=== PATIENT | female | born 2000 ===

== ENCOUNTER 2022-03-06 11:35 | Observation (INO) | payer SELFPAY ==
[2022-03-06 12:20] VITALS: BP 116/71
[2022-03-06 13:00] VITALS: BP 116/71
[2022-03-06 13:18] LABS: BASOPHILS % (AUTO) 0 % (0-10); EOSINOPHILS # (AUTO) 0.1 10^3/uL (0.0-0.3); EOSINOPHILS % (AUTO) 1 % (0-10); HEMATOCRIT 38 % (35-52); HEMOGLOBIN 13.3 g/dL (11.5-16.0); LYMPHOCYTES # (AUTO) 2.4 10^3/uL (1.0-4.0); LYMPHOCYTES % (AUTO) 21 % (12-44); MEAN CORPUSCULAR HEMOGLOBIN 31 pg (25-34); MEAN CORPUSCULAR HGB CONC 35 g/dL (32-36); MEAN CORPUSCULAR VOLUME 88 fL (80-99); MEAN PLATELET VOLUME 9.4 fL (9.0-12.2); MONOCYTES # (AUTO) 0.5 10^3/uL (0.0-1.0); MONOCYTES % (AUTO) 4 % (0-12); NEUTROPHILS # (AUTO) 8.3 10^3/uL (1.8-7.8); NEUTROPHILS % (AUTO) 74 % (42-75); PLATELET COUNT 452 10^3/uL (130-400); WHITE BLOOD COUNT 11.3 10^3/uL (4.3-11.0)
[2022-03-06 13:39] LABS: ALBUMIN 4.1 GM/DL (3.2-4.5); BILIRUBIN,TOTAL 0.4 MG/DL (0.1-1.0); CALCIUM 9.5 MG/DL (8.5-10.1); CREATININE SERUM 0.68 MG/DL (0.60-1.30); POTASSIUM 3.8 MMOL/L (3.6-5.0); TOTAL PROTEIN 7.4 GM/DL (6.4-8.2)
[2022-03-06] MEDS: D5 LR IV SOLUTION 1,000 ML IV SCH ×2 (13:55→19:34)
[2022-03-06 14:00] VITALS: BP 116/71
--- NOTE | 2022-03-06 14:11 | Diagnostic Imaging Report ---
PROCEDURE: US Gallbladder. TECHNIQUE: Multiple real-time grayscale images were obtained over the right upper quadrant in various projections. INDICATION: Right upper quadrant pain. FINDINGS: Liver is normal in size without focal lesions. There is hepatopedal flow in the main portal vein. Common bile duct is obscured. There is some gallbladder sludge. There is no gallbladder wall thickening or pericholecystic fluid. The pancreas is not well seen due to bowel gas. The aorta is nonaneurysmal. The IVC is normal in caliber and patent. Right kidney is normal. There is no ascites. There is a sonographically positive Phelps's sign. IMPRESSION: Sonographically positive Phelps's sign with questionable gallbladder sludge. Dictated by: Dictated on workstation # [id number]
[2022-03-06] MEDS: PROMETHAZINE INJ 25 MG/ML (PHENERGAN) AMP IVP PRN ×2 (14:15→18:05)
[2022-03-06 14:36] LABS: BILIRUBIN,URINE 1+ (NEGATIVE); CLARITY,URINE CLEAR; COLOR,URINE YELLOW; GLUCOSE, URINE (UA) NEGATIVE (NEGATIVE); KETONES,URINE TRACE (NEGATIVE); LEUKOCYTE ESTERASE ,URINE 3+ (NEGATIVE); NITRITE,URINE NEGATIVE (NEGATIVE); PH,URINE 6.5 (5-9); PROTEIN,URINE 1+ (NEGATIVE)
[2022-03-06 15:15] LABS: BACTERIA,URINE FEW /HPF; HYALINE CASTS, URINE 0-2 /LPF
[2022-03-06] MEDS: fentaNYL INJ 100 MCG/2 ML AMP IVP PRN ×3 (15:28→19:41)
[2022-03-06 15:30] VITALS: BP 109/56
--- NOTE | 2022-03-06 16:31 | Diagnostic Imaging Report ---
PROCEDURE: US OB SINGLE FETUS <14 WKS. TECHNIQUE: Multiple real-time grayscale images were obtained over the gravid uterus in various projections. INDICATION: Early . There are no prior studies available for comparison. FINDINGS: There is a gestational sac within the uterus containing a single live fetus. heart motion was noted, and a rate of 176 BPM was recorded. The crown-rump length suggests the estimated gestational age is 10 weeks 4 days, +/- 1 week. There were no obvious abnormalities identified. The amniotic fluid volume is within normal limits. At this time, it is not certain where the placenta will develop. Both ovaries were identified and were unremarkable. There is no pelvic mass or free fluid collection noted. IMPRESSION: 1. There is a single live intrauterine of approximately 10 weeks 4 days gestation, +/- 1 week. The EDC is 09/28/2022. 2. There were no obvious abnormality identified. If a more sensitive evaluation of the anatomy is desired, however, then a short-term (8-10 week) follow-up ultrasound exam would be recommended. 3. There is no pelvic mass or free fluid collection to suggest an acute abnormality. Dictated by: Dictated on workstation # [id number]
[2022-03-06] MEDS ORDERED: HYDROcodone/APAP 5 MG/325 MG (LORTAB) TAB PO PRN (18:45)
[2022-03-06] MEDS: ONDANSETRON 4 MG/2 ML (SDV) Z0FRAN IVP PRN (19:41)
[2022-03-06 20:00] VITALS: BP 99/55
[2022-03-06] MEDS ORDERED: PANTOPRAZOLE 40 MG (PROTONIX) VIAL IV ONE (20:00)
[2022-03-06] MEDS ORDERED: diphenhydrAMINE 50 MG/ML INJ (BENADRYL) IVP PRN (20:15)
[2022-03-06 21:21] LABS: HEPATITIS C ANTIBODY C Non-Reactive (Non-Reactive)
[2022-03-06] MEDS: PYRIDOXINE (VITAMIN B-6) 50 MG TABLET PO SCH (22:19)
[2022-03-06] MEDS ORDERED: PANTOPRAZOLE 40 MG (PROTONIX) VIAL ONE (22:33)
[2022-03-06 23:22] VITALS: BP 104/65
[2022-03-07 03:48] VITALS: BP 108/54
[2022-03-07] MEDS: D5 LR IV SOLUTION 1,000 ML IV SCH ×2 (03:50→13:48)
[2022-03-07] MEDS: fentaNYL INJ 100 MCG/2 ML AMP IVP PRN (03:51)
[2022-03-07 06:03] LABS: HEMATOCRIT 33 % (35-52); HEMOGLOBIN 11.3 g/dL (11.5-16.0); MEAN CORPUSCULAR HEMOGLOBIN 31 pg (25-34); MEAN CORPUSCULAR HGB CONC 35 g/dL (32-36); MEAN CORPUSCULAR VOLUME 88 fL (80-99); MEAN PLATELET VOLUME 9.7 fL (9.0-12.2); PLATELET COUNT 343 10^3/uL (130-400); WHITE BLOOD COUNT 8.4 10^3/uL (4.3-11.0)
[2022-03-07] MEDS ORDERED: LACTATED RINGERS 1,000 ML IV SCH (08:15)
[2022-03-07] MEDS ORDERED: PREN1TAB79 PO ×2 (08:15)
[2022-03-07 09:00] VITALS: BP 101/59
[2022-03-07] MEDS ORDERED: PANTOPRAZOLE 40 MG (PROTONIX) VIAL IV SCH (09:00)
[2022-03-07] MEDS: PYRIDOXINE (VITAMIN B-6) 50 MG TABLET PO SCH (09:48)
[2022-03-07] MEDS: ONDANSETRON 4 MG/2 ML (SDV) Z0FRAN IVP PRN (09:49)
[2022-03-07] MEDS ORDERED: PROMETHAZINE 25 MG (PHENERGAN) TAB PO PRN (10:45)
[2022-03-07] MEDS ORDERED: ONDANSETRON 4 MG (ZOFRAN) ORAL DISSOLVE TAB PO PRN (10:45)
[2022-03-07 12:30] VITALS: BP 107/56
[2022-03-07] MEDS: diphenhydrAMINE 25 MG TAB (BENADRYL) PO PRN ×2 (13:48→13:52)
[2022-03-07] MEDS ORDERED: PYRI25TA3 PO ×2 (14:45)
[2022-03-07] MEDS ORDERED: PROM25TA14 PO ×2 (14:45)
[2022-03-07] MEDS ORDERED: FAMO20TA3 PO ×2 (14:45)
[2022-03-07] MEDS ORDERED: ONDA4TAB11 PO ×2 (14:45)
[2022-03-07] MEDS ORDERED: DOXY25TA56 PO ×2 (14:45)
[2022-03-07] MEDS ORDERED: ACHD5005 PO ×2 (14:45)
--- NOTE | 2022-03-07 15:37 | Short Stay Summary ---
History of Present Illness History of Present Illness Reason for visit/HPI 21 yo at 10 weeks gestation presented to clinic on 03/06/22 for initial Ob visit and noted she had 3 days of severe RUQ pain, intractable vomiting that ranged from green to bloody, severe reflux and some cough. She reported history of gall bladder disease diagnosed in her second and as yet untreated and she had a lot of trouble with her GB in that . She denied fever, c ongestion, diarrhea. Date of Admission Mar 06, 2022 at 12:01 Date of Discharge Mar 07, 2022 Time Seen by Provider: 08:30 Attending Physician Admitting Physician Admitting Physician: Arslan Rios MD Attending Physician: Arslan Rios MD Consult Allergies and Home Medications Allergies Coded Allergies: No Known Drug Allergies (Unverified , 03/06/22) Patient Home Medication List Home Medication List Reviewed: Yes (note that the med list here is her d/c list, not her admit list) Doxylamine Succinate (Unisom) 25 Mg Tablet, 12.5 MG PO HS Prescribed by: ARSLAN RIOS on 03/07/22 1445 Famotidine (Acid Talent Advisor (FAMOTIDINE)) 20 Mg Tablet, 20 MG PO BID Prescribed by: ARSLAN RIOS on 03/07/22 1445 Hydrocodone Bit/Acetaminophen (HYDROcodone/APAP 5 MG/325 MG TAB) 1 Tab Tab, 1 EA PO Q6HR PRN for PAIN-MODERATE (5-7) Prescribed by: ARSLAN RIOS on 03/07/22 1446 Ondansetron (Ondansetron Odt) 4 Mg Tab.rapdis, 4 MG PO Q6H PRN for NAUS EA/VOMITING-3RD LINE Prescribed by: ARSLAN RIOS on 03/07/22 1445 Vit W-Ca,Fe,FA(<1 mg) ( Vitamins) 27 Mg Iron-800 Mcg Tablet, 1 EACH PO DAILY, (Reported) Entered as Reported by: RAJWINDER RAYA on 03/07/22 0815 Last Action: New Order Promethazine HCl (Promethazine Tablet) 25 Mg Tablet, 25 MG PO Q4H PRN for NAUSEA/VOMITING-2ND LINE Prescribed by: ARSLAN RIOS on 03/07/22 1445 Pyridoxine HCl (Vitamin B-6) 25 Mg Tablet, 25 MG PO TID Prescribed by: ARSLAN RIOS on 03/07/22 1445 Past Jwchgsd-Wjdbrc-Bvzutq Hx Patient Social History Number of Children: 2 Number of living children: 2 Smoking Status: Unknown if Ever Smoked Reproductive System : Yes Expected Date of Delivery: Sep 29, 2022 Last Menstrual Period: Dec 21, 2021 Hx : 3 Hx Para: 2 Hx Total # of Abortions (Spona: 0 Family Medical History Significant Family History: No Pertinent Family Hx Review of Systems Constitutional: No fever EENTM: throat pain; No nose congestion Respiratory: short of breath Gastrointestinal: abdominal pain; No constipation, No diarrhea; hematemesis, heartburn, nausea, vomiting Genitourinary: No dysuria Musculoskeletal: back pain Skin: No rash Physical Exam Vital Signs Vital Signs - First Documented 03/06/22 12:20 Temp 36.9 Pulse 88 Resp 18 B/P (MAP) 116/71 (86) Pulse Ox 98 O2 Delivery Room Air Capillary Refill : Less Than 3 Seconds Height, Weight, BMI Height: '" Weight: lbs. oz. kg; BMI Method: General Appearance: No Apparent Distress, WD/WN Respiratory: Lungs Clear, Normal Breath Sounds Cardiovascular: Regular Rate, Rhythm, No Murmur Gastrointestinal: Soft, Tenderness (marked RUQ tenderness, positive Phelps's) Extremity: No Pedal Edema Neurologic/Psychiatric: Alert, Normal Mood/Affect Skin: Normal Color, Warm/Dry Short Stay Diagnosis Discharge Diagnosis-Short Stay Admission Diagnosis: RUQ pain Hyperemesis gravidarum First trimester Cough Final Discharge Diagnosis: Gall bladder sludge without cholecystitis Hyperemesis gravidarum First trimester COVID19 infection Conclusion Labs Laboratory Tests 03/06/22 21:20: SARS-CoV-2 RNA (RT-PCR) DetectedH 03/07/22 05:11: White Blood Count 8.4, Red Blood Count 3.70L, Hemoglobin 11.3L, Hematocrit 33L, Mean Corpuscular Volume 88, Mean Corpuscular Hemoglobin 31, Mean Corpuscular Hemoglobin Concent 35, Red Cell Distribution Width 12.3, Platelet Count 343, Mean Platelet Volume 9.7 Microbiology 03/06/22 Urine Culture - Final, Complete 3 or more isolates Strep, Beta Hemolytic Group B No Susceptibility Performed Conclusion/Plan Gall bladder sludge without cholecystitis- labs showed minimal elevation in WBC and US showed sludge but no wall thickening or pericholecystic fluid, pain treated with hydrocodone, discussed importance of minimizing use. Will refer to Surgery to discuss possible second trimester cholecystectomy Hyperemesis gravidarum- labs without significant electrolyte abnormalities, received IVF throughout stay, able to tolerate liquid and some solid food at d/c, discharged with B6, doxylamine scheduled and promethazine as needed with ondansetron third option as needed First trimester - US confirmed live IUP, initial labs obt ained with labwork COVID19 infection- unvaccinated, discussed possibility of Paxlovid and risk and benefits in and she declined. No hypoxia throughout stay. ARSLAN RIOS MD Mar 07, 2022 15:37
[2022-03-07 17:00] VITALS: BP 96/54
[2022-03-07 18:20] VITALS: BP 96/54
== END 2022-03-07 14:38 | disposition home or self-care (01) ==
LOC: LDRP 12:01 → UNDOADMOB 12:01 → LDRP 12:10 → UNDODISOB 03-07 14:38
PROVIDERS: ADMIT Family Medicine; ATTEND Family Medicine
DX: O21.0 Mild hyperemesis gravidarum (principal); Z3A.10 10 weeks gestation of pregnancy; O26.891 Other specified pregnancy related conditions, first trimester; R10.11 Right upper quadrant pain; O98.511 Other viral diseases complicating pregnancy, first trimester; U07.1 COVID-19; O26.619 Liver and biliary tract disorders in pregnancy, unspecified trimester
CPT/HCPCS: 76705; 76801; 80053; 81000; 84443; 85025; 85027; 86762; 86780; 86803; 86850; 86900; 86901; 87077; 87088; 87340; 87389; 87636; 96361 ×2; 96374; 96375; 96376 ×2; G0378; G0379; 36415

== ENCOUNTER 2022-03-26 10:28 | Emergency (ER) | payer SELFPAY ==
[~2022-03-26] VITALS: Ht 165 cm; Wt 64.8 kg
[~2022-03-26 10:28] MED LIST: ACHD5005 PO; DOXY25TA56 PO; FAMO20TA3 PO; ONDA4TAB11 PO; PREN1TAB79 PO; PROM25TA14 PO; PYRI25TA3 PO
[2022-03-26 10:57] LABS: BASOPHILS % (AUTO) 0 % (0-10); EOSINOPHILS # (AUTO) 0.1 10^3/uL (0.0-0.3); EOSINOPHILS % (AUTO) 1 % (0-10); HEMATOCRIT 38 % (35-52); HEMOGLOBIN 12.8 g/dL (11.5-16.0); LYMPHOCYTES # (AUTO) 2.2 10^3/uL (1.0-4.0); LYMPHOCYTES % (AUTO) 21 % (12-44); MEAN CORPUSCULAR HEMOGLOBIN 31 pg (25-34); MEAN CORPUSCULAR HGB CONC 34 g/dL (32-36); MEAN CORPUSCULAR VOLUME 90 fL (80-99); MEAN PLATELET VOLUME 9.2 fL (9.0-12.2); MONOCYTES # (AUTO) 0.4 10^3/uL (0.0-1.0); MONOCYTES % (AUTO) 4 % (0-12); NEUTROPHILS # (AUTO) 7.7 10^3/uL (1.8-7.8); NEUTROPHILS % (AUTO) 74 % (42-75); PLATELET COUNT 381 10^3/uL (130-400); WHITE BLOOD COUNT 10.4 10^3/uL (4.3-11.0)
[2022-03-26 11:10] LABS: POTASSIUM 3.5 MMOL/L (3.6-5.0)
[2022-03-26 11:11] LABS: CALCIUM 9.2 MG/DL (8.5-10.1)
[2022-03-26 11:12] LABS: TOTAL PROTEIN 6.9 GM/DL (6.4-8.2)
[2022-03-26 11:13] LABS: BILIRUBIN,URINE NEGATIVE (NEGATIVE); CLARITY,URINE CLEAR; COLOR,URINE YELLOW; GLUCOSE, URINE (UA) NEGATIVE (NEGATIVE); KETONES,URINE NEGATIVE (NEGATIVE); LEUKOCYTE ESTERASE ,URINE 2+ (NEGATIVE); NITRITE,URINE NEGATIVE (NEGATIVE); PROTEIN,URINE NEGATIVE (NEGATIVE)
[2022-03-26 11:14] LABS: BILIRUBIN,TOTAL 0.4 MG/DL (0.1-1.0)
[2022-03-26 11:16] LABS: CREATININE SERUM 0.6 MG/DL (0.60-1.30)
[2022-03-26 11:25] LABS: CREATINE KINASE MB 0.4 NG/ML (<6.6)
[2022-03-26] MEDS ORDERED: ONDANSETRON 4 MG/2 ML (SDV) Z0FRAN IVP ONE (11:30)
[2022-03-26] MEDS ORDERED: DICYCLOMINE 10 MG/ML (BENTYL) 2 ML AMP IM ONE (11:30)
--- NOTE | 2022-03-26 11:30 | ED GI ---
General Chief Complaint: OB > 20 WEEKS Stated Complaint: RIGHT SIDE ABD PAIN Nursing Triage Note: PT PRESENTS TO ED WITH COMPLAINTS OF R UPPER ABDOMINAL PAIN X 4 DAYS. PT REPORTS N/V. PT STATES SHE HAS GALLSTONES AND HER OB TOLD HER SHE NEEDED SURGERY. PT REPORTS HER DUE DATE IS September. SHE IS APROX 22 WEEKS PREG. Source of Information: Patient Exam Limitations: No Limitations History of Present Illness Date Seen by Provider: Mar 26, 2022 Time Seen by Provider: 11:12 Initial Comments This is a 21-year-old female who is G-3, P- 2 with last menstrual period of December 20, 2021 who presented to the ER from [facility] for c/o right upper quadrant pain x4 days. Pain is aching, constant, and rates 10/10. Has associated nausea/vomiting with last episode last night. Took Zofran 4mg ODT with some relief. She has been unable to eat or drink due to pain and nausea. Has had no PO intake today. Allergies and Home Medications Allergies Coded Allergies: No Known Drug Allergies (Unverified , 03/06/22) Patient Home Medication List Doxylamine Succinate (Unisom) 25 Mg Tablet, 12.5 MG PO HS Prescribed by: ARSLAN ESPINOZA on 03/07/22 1445 Famotidine (Acid Floor Waxer (FAMOTIDINE)) 20 Mg Tablet, 20 MG PO BID Prescribed by: ARSLAN ESPINOZA on 03/07/22 1445 Hydrocodone Bit/Acetaminophen (HYDROcodone/APAP 5 MG/325 MG TAB) 1 Tab Tab, 1 EA PO Q6HR PRN for PAIN-MODERATE (5-7) Prescribed by: ARSLAN ESPINOZA on 03/07/22 1446 Ondansetron (Ondansetron Odt) 4 Mg Tab.rapdis, 4 MG PO Q6H PRN for NAUSEA/VOMITING-3RD LINE Prescribed by: ARSLAN ESPINOZA on 03/07/22 1445 Vit W-Ca,Fe,FA(<1 mg) ( Vitamins) 27 Mg Iron-800 Mcg Tablet, 1 EACH PO DAILY, (Reported) Entered as Reported by: RAJWINDER RAYA on 03/07/22 0815 Promethazine HCl (Promethazine Tablet) 25 Mg Tablet, 25 MG PO Q4H PRN for NAUSEA/VOMITING-2ND LINE Prescribed by: ARSLAN ESPINOZA on 03/07/22 1445 Pyridoxine HCl (Vitamin B-6) 25 Mg Tablet, 25 MG PO TID Prescribed by: ARSLAN ESPINOZA on 03/07/22 1445 Past Zobpdqi-Imyruo-Ijjzdp Hx Patient Social History Tobacco Use?: No Smoking Status: Former Smoker Substance use?: No Alcohol Use?: No Pt feels they are or have been: Yes Immunizations Up To Date First/Initial COVID19 Vaccinat: none Second COVID19 Vaccination Ramesh: none Past Medical History Surgery/Hospitalization HX: gallstones Family Medical History No Pertinent Family Hx Physical Exam Vital Signs Vital Signs - First Documented 03/26/22 10:53 Temp 37.1 Pulse 81 Resp 16 B/P (MAP) 112/67 (82) Pulse Ox 100 Capillary Refill : Less Than 3 Seconds Height/Weight/BMI Height: '" Weight: lbs. oz. kg; 23.00 BMI Method: Progress/Results/Core Measures Results/Orders Lab Results Laboratory Tests Test 03/26/22 10:50 03/26/22 11:08 Range/Units White Blood Count 10.4 4.3-11.0 10^3/uL Red Blood Count 4.17 3.80-5.11 10^6/uL Hemoglobin 12.8 11.5-16.0 g/dL Hematocrit 38 35-52 % Mean Corpuscular Volume 90 80-99 fL Mean Corpuscular Hemoglobin 31 25-34 pg Mean Corpuscular Hemoglobin Concent 34 32-36 g/dL Red Cell Distribution Width 12.8 10.0-14.5 % Platelet Count 381 130-400 10^3/uL Mean Platelet Volume 9.2 9.0-12.2 fL Immature Granulocyte % (Auto) 0 % Neutrophils (%) (Auto) 74 42-75 % Lymphocytes (%) (Auto) 21 12-44 % Monocytes (%) (Auto) 4 0-12 % Eosinophils (%) (Auto) 1 0-10 % Basophils (%) (Auto) 0 0-10 % Neutrophils # (Auto) 7.7 1.8-7.8 10^3/uL Lymphocytes # (Auto) 2.2 1.0-4.0 10^3/uL Monocytes # (Auto) 0.4 0.0-1.0 10^3/uL Eosinophils # (Auto) 0.1 0.0-0.3 10^3/uL Basophils # (Auto) 0.0 0.0-0.1 10^3/uL Immature Granulocyte # (Auto) 0.0 0.0-0.1 10^3/uL Sodium Level 137 135-145 MMOL/L Potassium Level 3.5 L 3.6-5.0 MMOL/L Chloride Level 103 98-107 MMOL/L Carbon Dioxide Level 23 21-32 MMOL/L Anion Gap 11 5-14 MMOL/L Blood Urea Nitrogen 4 L 7-18 MG/DL Creatinine 0.60 0.60-1.30 MG/DL Estimat Glomerular Filtration Rate 130 BUN/Creatinine Ratio 7 Glucose Level 88 70-105 MG/DL Calcium Level 9.2 8.5-10.1 MG/DL Corrected Calcium 9.2 8.5-10.1 MG/DL Total Bilirubin 0.4 0.1-1.0 MG/DL Aspartate Amino Transf (AST/SGOT) 15 5-34 U/L Alanine Aminotransferase (ALT/SGPT) 13 0-55 U/L Alkaline Phosphatase 65 40-136 U/L Creatine Kinase MB 0.4 <6.6 NG/ML Total Protein 6.9 6.4-8.2 GM/DL Albumin 4.0 3.2-4.5 GM/DL Lipase 14 8-78 U/L Urine Color YELLOW Urine Clarity CLEAR Urine pH 6.0 5-9 Urine Specific [place] 1.025 H 1.016-1.022 Urine Protein NEGATIVE NEGATIVE Urine Glucose (UA) NEGATIVE NEGATIVE Urine Ketones NEGATIVE NEGATIVE Urine Nitrite NEGATIVE NEGATIVE Urine Bilirubin NEGATIVE NEGATIVE Urine Urobilinogen 1.0 < = 1.0 MG/DL Urine Leukocyte Esterase 2+ H NEGATIVE Urine RBC (Auto) NEGATIVE NEGATIVE Urine RBC NONE /HPF Urine WBC 5-10 H /HPF Urine Squamous Epithelial Cells >50 H /HPF Urine Crystals NONE /LPF Urine Bacteria FEW H /HPF Urine Casts NONE /LPF Urine Mucus LARGE H /LPF Urine Culture Indicated YES My Orders Orders - MARTA VAN APRN Dicyclomine Injection (Bentyl Injection) (03/26/22 11:30) Ondansetron Injection (Zofran Injectio (03/26/22 11:30) Medications Given in ED Current Medications Medications Dose Ordered Sig/Susanna Route Start Time Stop Time Status Last Admin Dose Admin Dicyclomine HCl 10 mg ONCE ONCE IM 03/26/22 11:30 03/26/22 11:31 DC 03/26/22 11:33 10 MG Ondansetron HCl 4 mg ONCE ONCE IVP 03/26/22 11:30 03/26/22 11:31 DC 03/26/22 11:33 4 MG Vital Signs/I&O 03/26/22 10:53 Temp 37.1 Pulse 81 Resp 16 B/P (MAP) 112/67 (82) Pulse Ox 100 Blood Pressure Mean: 82 Departure Impression Primary Impression: Gallbladder colic Additional Impressions: Nausea and vomiting during UTI (urinary tract infection) Disposition: HOME, SELF-CARE Condition: Improved Departure-Patient Inst. Decision time for Depature: 12:24 Referrals: [facility] (PCP/Family) Primary Care Physician Patient Instructions: Gallbladder Diet Add. Discharge Instructions: Plan: 1. May take Dicyclomine 1 capsule by mouth every 6 hours as needed for pain. 2. Take Zofran 4mg by mouth every 6 hours as needed for nausea/vomiting. 3. Make sure you are drinking plenty of fluids to stay hydrated. 4. Fill out financial examiner through the hospital so we can schedule you follow up with general surgery to further evaluate your pain. 5. Return to ER for any new, concerning, or worsening symptoms. All discharge instructions reviewed with patient and/or family. Voiced unde rstanding. Scripts Cephalexin (Cephalexin) 500 Mg Tablet 500 MG PO QID for 7 Days, #28 TAB 0 Refills Prov: MARTA VAN EDGE GRINDER MACHINE 03/26/22 Dicyclomine HCl (Dicyclomine HCl) 10 Mg Capsule 10 MG PO Q6H PRN for PAIN-MILD (1-4), #30 CAP 0 Refills Prov: MARTA VAN EDGE GRINDER MACHINE 03/26/22 MARTA VAN EDGE GRINDER MACHINE Mar 26, 2022 11:30
[2022-03-26 12:01] LABS: BACTERIA,URINE FEW /HPF; SQUAMOUS EPITHELIAL CELL,UR >50 /HPF
--- NOTE | 2022-03-26 12:14 | Diagnostic Imaging Report ---
PROCEDURE: US Gallbladder. TECHNIQUE: Multiple real-time grayscale images were obtained over the right upper quadrant in various projections. INDICATION: Right upper quadrant pain, . FINDINGS: The liver parenchyma unremarkable. There is no abnormal distention of intramural or extrahepatic bile ducts. No echogenic or shadowing gallstone. The gallbladder wall non-thickened. Histotechnologist Supervisor did report tenderness to the gallbladder with transducer pressure. Pancreas was largely obscured. The right kidney unobstructed and normal. There was no ascites. Portal vein patent and showed normal hepatopetal directional flow. No right-sided hydronephrosis. IMPRESSION: No biliary dilatation or visualized stone. Non-thickened gallbladder was tender to transducer pressure. Right upper quadrant ultrasound otherwise normal. Normal nondilated right kidney. Dictated by: Dictated on workstation # [id number]
[2022-03-26] MEDS ORDERED: NS IV 1000 ML 1,000 ML IV ONE (12:30)
[2022-03-26] MEDS ORDERED: CEPH500T PO (12:30)
[2022-03-26] MEDS ORDERED: DICY10CA12 PO (12:30)
[2022-03-26] MEDS ORDERED: fentaNYL INJ 100 MCG/2 ML AMP IVP ONE (13:30)
[2022-03-26] MEDS ORDERED: DICYCLOMINE 10 MG (BENTYL) CAP PO ONE (13:30)
[2022-03-26 13:50] VITALS: BP 100/38
== END 2022-03-26 13:52 | disposition home or self-care (01) ==
LOC: EDUNIT# 10:28 → ER 10:31
DX: O23.42 Unspecified infection of urinary tract in pregnancy, second trimester (principal); N39.0 Urinary tract infection, site not specified; O99.612 Diseases of the digestive system complicating pregnancy, second trimester; K80.20 Calculus of gallbladder without cholecystitis without obstruction; Z87.891 Personal history of nicotine dependence; Z3A.22 22 weeks gestation of pregnancy; Z28.310 Unvaccinated for COVID-19
CPT/HCPCS: 36415; 76705; 80053; 81000; 82553; 83690; 85025; 87088

== ENCOUNTER 2022-04-07 12:22 | Emergency (ER) | payer SELFPAY ==
[~2022-04-07] VITALS: Ht 165.2 cm; Wt 65.9 kg
[~2022-04-07 12:22] MED LIST changes: +CEPH500T PO; +DICY10CA12 PO
--- NOTE | 2022-04-07 13:10 | ED Abdominal Pain ---
General Stated Complaint: 15 WK PREG - ABD PAIN/VOMITING/HEADACHE Source of Information: Patient Exam Limitations: Language Barrier History of Present Illness Date Seen by Provider: Apr 07, 2022 Time Seen by Provider: 12:57 Initial Comments Patient is a 21-year-old female who presents to the emergency department chief complaint of right upper quadrant abdominal pain, nausea and vomiting. Patient is approximately 3 and half months , last menstrual cycle was in November 2021. She is getting care through [facility], Dr. Espinoza. She is a G3, P2. She has had prior symptoms similar to this in her second . No fevers or chills. No diarrhea. She states eating makes her pain worse. She has not taken anything for it. The last time she had anything to eat or drink was yesterday. She denies abnormal vaginal bleeding. No dysuria, urgency or frequency. No black or bloody stools. She has had no prior abdominal surgeries. Use of video new account interviewer to facilitate communication All other review of systems reviewed and negative except as stated Timing/Duration: 2-3 Days Severity/Quality: Moderate, Aching Location: RUQ Radiation: No Radiation Modifying Factors: Worsens With Eating Associated Symptoms: Nausea/Vomiting Allergies and Home Medications Allergies Coded Allergies: No Known Drug Allergies (Unverified , 03/06/22) Patient Home Medication List Home Medication List Reviewed: Yes Cephalexin (Cephalexin) 500 Mg Tablet, 500 MG PO QID Prescribed by: MARTA VAN on 03/26/22 1230 Dicyclomine HCl (Dicyclomine HCl) 10 Mg Capsule, 10 MG PO Q6H PRN for PAIN-MILD (1-4) Prescribed by: MARTA VAN on 03/26/22 1230 Doxylamine Succinate (Unisom) 25 Mg Tablet, 12.5 MG PO HS Prescribed by: ARSLAN ESPINOZA on 03/07/22 1445 Famotidine (Acid [place] Attendant (FAMOTIDINE)) 20 Mg Tablet, 20 MG PO BID Prescribed by: ARSLAN ESPINOZA on 03/07/22 1445 Hydrocodone Bit/Acetaminophen (HYDROcodone/APAP 5 MG/325 MG TAB) 1 Tab Tab, 1 EA PO Q6HR PRN for PAIN-MODERATE (5-7) Prescribed by: ARSLAN ESPINOZA on 03/07/22 1446 Ondansetron (Ondansetron Odt) 4 Mg Tab.rapdis, 4 MG PO Q6H PRN for NAUSEA/VO MITING-3RD LINE Prescribed by: ARSLAN ESPINOZA on 03/07/22 1445 Vit W-Ca,Fe,FA(<1 mg) ( Vitamins) 27 Mg Iron-800 Mcg Tablet, 1 EACH PO DAILY, (Reported) Entered as Reported by: RAJWINDER RAYA on 03/07/22 0815 Promethazine HCl (Promethazine Tablet) 25 Mg Tablet, 25 MG PO Q4H PRN for NAUSEA/VOMITING-2ND LINE Prescribed by: ARSLAN ESPINOZA on 03/07/22 144 Pyridoxine HCl (Vitamin B-6) 25 Mg Tablet, 25 MG PO TID Prescribed by: ARSLAN ESPINOZA on 03/07/22 144 Review of Systems Review of Systems Constitutional: see HPI EENTM: No Symptoms Reported Respiratory: No Symptoms Reported Cardiovascular: No Symptoms Reported Gastrointestinal: Abdominal Pain, Nausea, Poor Appetite, Vomiting Genitourinary: No Symptoms Reported Musculoskeletal: no symptoms reported Skin: no symptoms reported All Other Systems Reviewed Negative Unless Noted: Yes Past Yxxkfjq-Sizpji-Ssgchc Hx Immunizations Up To Date First/Initial COVID19 Vaccinat: none Second COVID19 Vaccination Ramesh: none Past Medical History Surgery/Hospitalization HX: gallstones Family Medical History No Pertinent Family Hx Physical Exam Vital Signs Vital Signs - First Documented 04/07/22 13:00 Temp 36.0 Pulse 79 Resp 18 B/P (MAP) 117/74 (88) Pulse Ox 100 O2 Delivery Room Air Capillary Refill : Height/Weight/BMI Height: '" Weight: lbs. oz. kg; 23.00 BMI Method: General Appearance: WD/WN, no apparent distress HEENT: PERRL/EOMI Respiratory: lungs clear, normal breath sounds, no respiratory distress, no accessory muscle use Cardiovascular: regular rate, rhythm Peripheral Pulses: 2+ Radial Pulses (R), 2+ Radial Pulses (L) Gastrointestinal: soft, guarding (Right upper quadrant), tenderness (Right upper quad) Extremities: normal range of motion, normal inspection, no pedal edema Neurologic/Psychiatric: alert, normal mood/affect, oriented x 3 Skin: normal color, warm/dry Progress/Results/Core Measures Results/Orders Lab Results Laboratory Tests Test 04/07/22 13:06 04/07/22 13:08 Range/Units White Blood Count 14.2 H 4.3-11.0 10^3/uL Red Blood Count 3.97 3.80-5.11 10^6/uL Hemoglobin 12.2 11.5-16.0 g/dL Hematocrit 36 35-52 % Mean Corpuscular Volume 90 80-99 fL Mean Corpuscular Hemoglobin 31 25-34 pg Mean Corpuscular Hemoglobin Concent 34 32-36 g/dL Red Cell Distribution Width 13.1 10.0-14.5 % Platelet Count 369 130-400 10^3/uL Mean Platelet Volume 9.2 9.0-12.2 fL Immature Granulocyte % (Auto) 0 % Neutrophils (%) (Auto) 76 H 42-75 % Lymphocytes (%) (Auto) 18 12-44 % Monocytes (%) (Auto) 4 0-12 % Eosinophils (%) (Auto) 1 0-10 % Basophils (%) (Auto) 0 0-10 % Neutrophils # (Auto) 10.8 H 1.8-7.8 10^3/uL Lymphocytes # (Auto) 2.6 1.0-4.0 10^3/uL Monocytes # (Auto) 0.6 0.0-1.0 10^3/uL Eosinophils # (Auto) 0.1 0.0-0.3 10^3/uL Basophils # (Auto) 0.0 0.0-0.1 10^3/uL Immature Granulocyte # (Auto) 0.0 0.0-0.1 10^3/uL Neutrophils % (Manual) 73 % Lymphocytes % (Manual) 22 % Monocytes % (Manual) 5 % Blood Morphology Comment NORMAL Sodium Level 134 L 135-145 MMOL/L Potassium Level 3.7 3.6-5.0 MMOL/L Chloride Level 104 98-107 MMOL/L Carbon Dioxide Level 24 21-32 MMOL/L Anion Gap 6 5-14 MMOL/L Blood Urea Nitrogen 5 L 7-18 MG/DL Creatinine 0.60 0.60-1.30 MG/DL Estimat Glomerular Filtration Rate 130 BUN/Creatinine Ratio 8 Glucose Level 82 70-105 MG/DL Calcium Level 9.0 8.5-10.1 MG/DL Corrected Calcium 9.2 8.5-10.1 MG/DL Total Bilirubin 0.3 0.1-1.0 MG/DL Aspartate Amino Transf (AST/SGOT) 21 5-34 U/L Alanine Aminotransferase (ALT/SGPT) 25 0-55 U/L Alkaline Phosphatase 64 40-136 U/L Total Protein 6.6 6.4-8.2 GM/DL Albumin 3.8 3.2-4.5 GM/DL Lipase 14 8-78 U/L Urine Color YELLOW Urine Clarity CLEAR Urine pH 6.0 5-9 Urine Specific [place] 1.025 H 1.016-1.022 Urine Protein NEGATIVE NEGATIVE Urine Glucose (UA) NEGATIVE NEGATIVE Urine Ketones NEGATIVE NEGATIVE Urine Nitrite NEGATIVE NEGATIVE Urine Bilirubin NEGATIVE NEGATIVE Urine Urobilinogen 1.0 < = 1.0 MG/DL Urine Leukocyte Esterase 2+ H NEGATIVE Urine RBC (Auto) NEGATIVE NEGATIVE Urine RBC NONE /HPF Urine WBC 10-25 H /HPF Urine Squamous Epithelial Cells 25-50 H /HPF Urine Crystals NONE /LPF Urine Bacteria MODERATE H /HPF Urine Casts NONE /LPF Urine Mucus MODERATE H /LPF Urine Culture Indicated NO My Orders Orders - DARIA MARMOLEJO MD Ed Iv/Invasive Line Start (04/07/22 13:03) Cbc With Automated Diff (04/07/22 13:03) Comprehensive Metabolic Panel (04/07/22 13:03) Lipase (04/07/22 13:03) Ua Culture If Indicated (04/07/22 13:03) Heart Tones (04/07/22 13:03) Ns Iv 1000 Ml (Sodium Chloride 0.9%) (04/07/22 13:15) Ondansetron Injection (Zofran Injectio (04/07/22 13:15) Fentanyl Inj (Sublimaze Injection) (04/07/22 13:15) Manual Differential (04/07/22 13:06) Us Gallbladder [id number] (04/07/22 13:45) Ondansetron Injection (Zofran Injectio (04/07/22 15:45) Acetaminophen Tablet (Tylenol Tablet) (04/07/22 15:45) Ondansetron Oral Dissolve Tab (Zofran (04/07/22 16:00) Ondansetron Oral Dissolve Tab (Zofran (04/07/22 16:00) Medications Given in ED Current Medications Medications Dose Ordered Sig/Susanna Route Start Time Stop Time Status Last Admin Dose Admin Acetaminophen 1,000 mg ONCE ONCE PO 04/07/22 15:45 04/07/22 15:46 DC 04/07/22 16:02 1,000 MG Fentanyl Citrate 25 mcg ONCE ONCE IVP 04/07/22 13:15 04/07/22 13:16 DC 04/07/22 13:16 25 MCG Ondansetron HCl 4 mg ONCE ONCE IVP 04/07/22 13:15 04/07/22 13:16 DC 04/07/22 13:16 4 MG Ondansetron HCl 4 mg ONCE ONCE PO 04/07/22 16:00 04/07/22 16:01 DC 04/07/22 16:02 4 MG Vital Signs/I&O 04/07/22 04/07/22 13:00 15:56 Temp 36.0 36.0 Pulse 79 79 Resp 18 18 B/P (MAP) 117/74 (88) 117/74 Pulse Ox 100 100 O2 Delivery Room Air Room Air Progress Progress Note : Time: 15:04 Progress Note Bedside ultrasound, no gallbladder wall thickening, pericholecystic fluid or common bile duct dilatation. Again demonstration of no gallstones. Patient has been given IV fluids and nausea medications. I think we have established that she does not have any biliary pathology. Home with Amanda, recommendations for Tylenol and follow-up with her DIRECTOR OF MARKET INTELLIGENCE in [facility]. Departure Impression Primary Impression: Vomiting affecting , antepartum Additional Impression: Abdominal pain Qualified Codes: R10.11 - Right upper quadrant pain Disposition: 01 HOME, SELF-CARE Condition: Improved Departure-Patient Inst. Decision time for Depature: 15:05 Referrals: [facility] (PCP/Family) Primary Care Physician Patient Instructions: Abdominal Pain, Adult ED Add. Discharge Instructions: Follow a bland diet today. Drink plenty of water to stay well-hydrated. Take the nausea medication every 8 hours as needed for upset stomach. Extra strength Tylenol 2 tablets every 6 hours as needed for abdominal pain. Please call [facility], Dr. Espinoza for a follow-up appointment. Come back to the emergency department for fever greater than 101, persistent vomiting, increased pain or any other emergent, concerning symptoms. Siga marcial dieta blanda hoy. Taylor radha agua para mantenerse chapis hidratado. [place] el medicamento para las nuseas cada 8 horas segn sea necesario para el malestar estomacal. Fuerza extra Tylenol 2 comprimidos cada 6 horas segn sea necesario para el dolor abdominal. [facility], Dr. Espinoza para marcial hafsa de seguimiento. Regrese al departamento de emergencias por fiebre mayor de 101, vmitos persistentes, aumento del dolor o cualquier otro sntoma emergente, preocupante. Scripts Ondansetron (Ondansetron Odt) 4 Mg Tab.rapdis 4 MG SL Q8H PRN for NAUSEA/VOMITING, #15 TAB Prov: DARIA MARMOLEJO MD 04/07/22 Copy Copies To 1: ARSLAN ESPINOZA MD, KATHRYN M MD Apr 07, 2022 13:10
[2022-04-07 13:14] LABS: BASOPHILS % (AUTO) 0 % (0-10); EOSINOPHILS # (AUTO) 0.1 10^3/uL (0.0-0.3); EOSINOPHILS % (AUTO) 1 % (0-10); HEMATOCRIT 36 % (35-52); HEMOGLOBIN 12.2 g/dL (11.5-16.0); LYMPHOCYTES # (AUTO) 2.6 10^3/uL (1.0-4.0); LYMPHOCYTES % (AUTO) 18 % (12-44); MEAN CORPUSCULAR HEMOGLOBIN 31 pg (25-34); MEAN CORPUSCULAR HGB CONC 34 g/dL (32-36); MEAN CORPUSCULAR VOLUME 90 fL (80-99); MEAN PLATELET VOLUME 9.2 fL (9.0-12.2); MONOCYTES # (AUTO) 0.6 10^3/uL (0.0-1.0); MONOCYTES % (AUTO) 4 % (0-12); NEUTROPHILS # (AUTO) 10.8 10^3/uL (1.8-7.8); NEUTROPHILS % (AUTO) 76 % (42-75); PLATELET COUNT 369 10^3/uL (130-400); WHITE BLOOD COUNT 14.2 10^3/uL (4.3-11.0)
[2022-04-07] MEDS ORDERED: fentaNYL INJ 100 MCG/2 ML AMP IVP ONE (13:15)
[2022-04-07] MEDS ORDERED: NS IV 1000 ML 1,000 ML IV SCH (13:15)
[2022-04-07] MEDS ORDERED: ONDANSETRON 4 MG/2 ML (SDV) Z0FRAN IVP ONE ×2 (13:15→15:45)
[2022-04-07 13:17] LABS: BILIRUBIN,URINE NEGATIVE (NEGATIVE); CLARITY,URINE CLEAR; COLOR,URINE YELLOW; GLUCOSE, URINE (UA) NEGATIVE (NEGATIVE); KETONES,URINE NEGATIVE (NEGATIVE); LEUKOCYTE ESTERASE ,URINE 2+ (NEGATIVE); NITRITE,URINE NEGATIVE (NEGATIVE); PROTEIN,URINE NEGATIVE (NEGATIVE)
[2022-04-07 13:25] LABS: ALBUMIN 3.8 GM/DL (3.2-4.5); POTASSIUM 3.7 MMOL/L (3.6-5.0)
[2022-04-07 13:27] LABS: LYMPHOCYTES % (MANUAL) 22 %; MONOCYTES % (MANUAL) 5 %; NEUTROPHILS % (MANUAL) 73 %; RBC MORPH NORMAL; TOTAL PROTEIN 6.6 GM/DL (6.4-8.2)
[2022-04-07 13:29] LABS: BILIRUBIN,TOTAL 0.3 MG/DL (0.1-1.0)
[2022-04-07 13:31] LABS: CREATININE SERUM 0.6 MG/DL (0.60-1.30)
[2022-04-07 13:59] LABS: BACTERIA,URINE MODERATE /HPF; SQUAMOUS EPITHELIAL CELL,UR 25-50 /HPF
[2022-04-07] MEDS ORDERED: ACETAMINOPHEN 500 MG TAB (TYLENOL) PO ONE (15:45)
--- NOTE | 2022-04-07 15:45 | Diagnostic Imaging Report ---
PROCEDURE: US Gallbladder. TECHNIQUE: Multiple real-time grayscale images were obtained over the right upper quadrant in various projections. INDICATION: Right upper quadrant abdominal pain with nausea and emesis. FINDINGS: Grayscale imaging of the gallbladder reveals no intraluminal filling defect. There is no gallbladder wall thickening or pericholecystic fluid. No intra or extrahepatic biliary ductal dilatation is identified. No pancreatic, right renal, abdominal aortic or inferior vena caval abnormality is documented. No ascites was noted. Bowel gas does limit evaluation, although patient did report tenderness with transducer located over the region of gallbladder. IMPRESSION: Positive sonographic Phelps's sign without other acute abnormality identified. Clinical correlation would be of use. Dictated by: Dictated on workstation # [id number]
[2022-04-07 15:56] VITALS: BP 117/74
[2022-04-07] MEDS ORDERED: ONDANSETRON 4 MG (ZOFRAN) ORAL DISSOLVE TAB ONE (16:00)
[2022-04-07] MEDS ORDERED: ONDANSETRON 4 MG (ZOFRAN) ORAL DISSOLVE TAB PO ONE (16:00)
[2022-04-07] MEDS ORDERED: ONDA4TAB11 SL (16:39)
== END 2022-04-07 16:04 | disposition home or self-care (01) ==
LOC: EDUNIT# 12:22 → ER 12:24
DX: O21.9 Vomiting of pregnancy, unspecified (principal); O26.892 Other specified pregnancy related conditions, second trimester; R10.11 Right upper quadrant pain; Z28.310 Unvaccinated for COVID-19; Z3A.15 15 weeks gestation of pregnancy
CPT/HCPCS: 36415; 76705; 80053; 81000; 83690; 85007; 85027

== ENCOUNTER 2022-09-01 12:05 | Outpatient (CLI) | payer SELFPAY ==
[~2022-09-01] VITALS: Ht 165 cm; Wt 76.7 kg
[2022-09-01 11:55] VITALS: BP 111/73
[~2022-09-01 12:05] MED LIST changes: +ONDA4TAB11 SL
[2022-09-01 13:30] VITALS: BP 111/73
--- NOTE | 2022-09-02 08:43 | Physician Query-Final Dx ---
HIRA,09/02/22 0842: Clinic Account Progress/Dx Physician Query: Please give diagnosis Please include # weeks gestation Date of Service Sep 01, 2022 at 12:05 ARSLAN ESPINOZA MD 09/05/22 1802: Clinic Account Progress/Dx DIAGNOSIS: Diagnosis contractions without cervical change 36 weeks gestation ,JunSep 02, 2022 08:42 ARSLAN ESPINOZA MD Sep 05, 2022 18:02
== END 2022-09-01 14:30 | disposition home or self-care (01) ==
LOC: LDRP 12:05 → WSo 12:05
PROVIDERS: ATTEND Family Medicine
DX: O47.03 False labor before 37 completed weeks of gestation, third trimester (principal); Z3A.36 36 weeks gestation of pregnancy
CPT/HCPCS: 99213

== ENCOUNTER 2022-09-05 14:33 | Inpatient (IN) | payer SELFPAY ==
[~2022-09-05] VITALS: Ht 165 cm; Wt 76.0 kg
[2022-09-05] VITALS (32 sets, daily range): BP systolic 88–126; BP diastolic 55–79
[2022-09-05] MEDS ORDERED: ONDANSETRON 4 MG (ZOFRAN) ORAL DISSOLVE TAB PO PRN (14:45)
[2022-09-05 15:05] LABS: HEMATOCRIT 36 % (35-52); HEMOGLOBIN 12.1 g/dL (11.5-16.0); MEAN CORPUSCULAR HEMOGLOBIN 30 pg (25-34); MEAN CORPUSCULAR HGB CONC 34 g/dL (32-36); MEAN CORPUSCULAR VOLUME 89 fL (80-99); MEAN PLATELET VOLUME 9.4 fL (9.0-12.2); PLATELET COUNT 393 10^3/uL (130-400); WHITE BLOOD COUNT 10.1 10^3/uL (4.3-11.0)
[2022-09-05 15:14] LABS: BILIRUBIN,URINE NEGATIVE (NEGATIVE); CLARITY,URINE CLEAR; COLOR,URINE YELLOW; GLUCOSE, URINE (UA) NEGATIVE (NEGATIVE); KETONES,URINE NEGATIVE (NEGATIVE); LEUKOCYTE ESTERASE ,URINE TRACE (NEGATIVE); NITRITE,URINE NEGATIVE (NEGATIVE); PH,URINE 8.5 (5-9); PROTEIN,URINE 1+ (NEGATIVE)
[2022-09-05 15:16] LABS: ALBUMIN 3.3 GM/DL (3.2-4.5); POTASSIUM 3.9 MMOL/L (3.6-5.0)
[2022-09-05 15:17] LABS: PROTHROMBIN TIME PATIENT 13.4 SEC (12.2-14.7)
[2022-09-05 15:18] LABS: CALCIUM 8.8 MG/DL (8.5-10.1)
[2022-09-05 15:19] LABS: TOTAL PROTEIN 6.3 GM/DL (6.4-8.2)
[2022-09-05 15:21] LABS: BILIRUBIN,TOTAL 0.3 MG/DL (0.1-1.0)
[2022-09-05 15:22] LABS: CREATININE SERUM 0.61 MG/DL (0.60-1.30)
[2022-09-05 15:25] LABS: URIC ACID 4.9 MG/DL (2.6-7.2)
[2022-09-05 15:29] LABS: BACTERIA,URINE MODERATE /HPF
[2022-09-05] MEDS ORDERED: LACTATED RINGERS 1,000 ML IV SCH (15:30)
[2022-09-05] MEDS ORDERED: AMPICILLIN FOR IV USE 2,000 MG in NS (IVPB) 50 ML IV SCH (15:33)
[2022-09-05] MEDS ORDERED: MINERAL OIL 30 ML UDC TOP PRN (16:00)
[2022-09-05] MEDS ORDERED: fentaNYL INJ 100 MCG/2 ML AMP IVP PRN (16:45)
[2022-09-05] MEDS ORDERED: D5 LR IV SOLUTION 1,000 ML IV ONE (17:23)
[2022-09-05] MEDS ORDERED: D5 LR IV SOLUTION 1,000 ML IV SCH (17:30)
--- NOTE | 2022-09-05 17:44 | History & Physical-OB ---
OB - Chief Complaint & HPI Date/Time Date of Admission: Date of Admission: Sep 05, 2022 at 15:47 Date seen by a Provider: Sep 05, 2022 Time Seen by a Provider: 17:39 Chief Complaint/History OB-Reason for Admission/Chief: Labor Hx : 3 Hx Para: 2 Expected Date of Delivery: Sep 29, 2022 Gestational Age in Weeks: 36 Gestational Age in Days: 4 Other reason for admission: at 36w4d presented to clinic for routine Ob follow up this morning, was having retching and vomiting and noted hematemesis and right upper quadrant pain as well as contractions. She has had gall bladder problems throughout this and her previous . In clinic, a BPP was done which was 02/03, SKY 13. Gall bladder/liver US showed gall bladder sludge without evidence of cholecystitis and no obvious liver abnormalities. She was 4.5/50/-3 in clinic and sent to the hospital for further monitoring and labs. She has continued to contract every 2- 3 minutes since arrival in spite of fluid bolus. History of Labs O+, antibody neg. RI. HIV/HepB/HepC/RPR NR. GC/chlamydia neg. 1 hour glucola nml. GBS positive. Allergies and Home Medications Allergies Coded Allergies: No Known Drug Allergies (Unverified , 03/06/22) Patient Home Medication List Home Medication List Reviewed: Yes Discontinued Medications Cephalexin (Cephalexin) 500 Mg Tablet, 500 MG PO QID Discontinued Reason: No Longer Taking Prescribed by: MARTA VAN on 03/26/22 1230 Dicyclomine HCl (Dicyclomine HCl) 10 Mg Capsule, 10 MG PO Q6H PRN for PAIN-MILD (1-4) Discontinued Reason: No Longer Taking Prescribed by: MARTA VAN on 03/26/22 1230 Doxylamine Succinate (Unisom) 25 Mg Tablet, 12.5 MG PO HS Discontinued Reason: No Longer Taking Prescribed by: ARSLAN ESPINOZA on 03/07/22 1445 Last Action: Discontinued Famotidine (Acid Utilities Operator (FAMOTIDINE)) 20 Mg Tablet, 20 MG PO BID Discontinued Reason: No Longer Taking Prescribed by: ARSLAN ESPINOZA on 03/07/22 1445 Hydrocodone Bit/Acetaminophen (HYDROcodone/APAP 5 MG/325 MG TAB) 1 Tab Tab, 1 EA PO Q6HR PRN for PAIN-MODERATE (5-7) Discontinued Reason: No Longer Taking Prescribed by: ARSLAN ESPINOZA on 03/07/22 144 Ondansetron (Ondansetron Odt) 4 Mg Tab.rapdis, 4 MG PO Q6H PRN for NAUSEA/VOMITING-3RD LINE Discontinued Reason: No Longer Taking Prescribed by: ARSLAN ESPINOZA on 03/07/22 144 Ondansetron (Ondansetron Odt) 4 Mg Tab.rapdis, 4 MG SL Q8H PRN for NAUSEA/VOMITING Discontinued Reason: No Longer Taking Prescribed by: DARIA MARMOLEJO on 04/07/22 1639 Vit W-Ca,Fe,FA(<1 mg) ( Vitamins) 27 Mg Iron-800 Mcg Tablet, 1 EACH PO DAILY, (Reported) Discontinued Reason: No Longer Taking Entered as Reported by: RAJWINDER RAYA on 03/07/22 0815 Last Action: Discontinued Promethazine HCl (Promethazine Tablet) 25 Mg Tablet, 25 MG PO Q4H PRN for NAUSEA/VOMITING-2ND LINE Discontinued Reason: No Longer Taking Prescribed by: ARSLAN ESPINOZA on 03/07/221444 Last Action: Discontinued Pyridoxine HCl (Vitamin B-6) 25 Mg Tablet, 25 MG PO TID Discontinued Reason: No Longer Taking Prescribed by: ARSLAN ESPINOZA on 03/07/221444 Last Action: Discontinued OB - History Hx of Present Care: Yes Ultrasounds: Normal mid trimester US Obstetrical Complications: None Medical Complications: Other (gall bladder disease) Information Induced Hypertension: No Maternal Gestational Diabetes: No Hemorrhage: No Obstetrical History Hx : 3 Hx Para: 2 Hx # Term Pregnancies: 2 Hx # Pregnancies: 0 Number of Living Children: 2 Hx Total # of Abortions (Spona: 0 Hx Multiple Gestation: No Hx Ectopic : No Hx Stillbirth: No Hx Complication: No Hx Induced Hypertens: No Hx Maternal Gestational Diabet: No Hx Hemorrhage: No Delivery History Hx Dystocia: No Hx Forceps Assisted Delivery: No Hx Vacuum Extraction Assisted: No Hx Placenta Abnormality: No Hx Distress: No Hx Large For Gestational Age I: No Hx Small for Gestational Age I: No Hx Section: No Hx Vaginal Delivery Post C-Sec: No Hx Blood Disorders: No Adverse Rxn to Tranfusion: No Patient Past Medical History PMHx: denies SurgHx: denies Social History/Family History Alcohol Use: Denies Use Recreational Drug Use: No Smoking Cessation: Never smoker 2nd Hand Smoke Exposure: No Immunizations Influenza Vaccine Up-to-Date: Yes; Up-to-Date First/Initial COVID19 Vaccine: none Second COVID19 Vaccination: none Third COVID19 Vaccination Date: none Tetanus Booster (TDap): Less than 5yrs Rubella: immune RPR/VDRL: Negative GBS Status: Positive HBsAG: Negative OB - Admission Exam Physical Exam Vitals: Vital Signs 09/05/22 14:52 Temp 36.8 Pulse 86 Resp 18 B/P (MAP) 116/65 Pulse Ox 98 O2 Delivery Room Air HEENT: NCAT Abdomen: Gravid Extremities: Normal Cervical Dilatation: 6cm Effacement: 50% Station: -3 Membranes: Ruptured (AROM at time of exam) Amniotic Fluid: Clear Heart Rate: 140's Accelerations: Accelerations Present Decelerations: No Decelerations Short Term Variability: Present File Keeper Variability: Average (6-25) Contractions on Admission: < 5 Minutes Apart Labs Laboratory Tests Test 09/05/22 14:20 09/05/22 14:56 Range/Units Urine Color YELLOW Urine Clarity CLEAR Urine pH 8.5 5-9 Urine Specific [place] 1.010 L 1.016-1.022 Urine Protein 1+ H NEGATIVE Urine Glucose (UA) NEGATIVE NEGATIVE Urine Ketones NEGATIVE NEGATIVE Urine Nitrite NEGATIVE NEGATIVE Urine Bilirubin NEGATIVE NEGATIVE Urine Urobilinogen 2.0 < = 1.0 MG/DL Urine Leukocyte Esterase TRACE H NEGATIVE Urine RBC (Auto) NEGATIVE NEGATIVE Urine RBC NONE /HPF Urine WBC 10-25 H /HPF Urine Squamous Epithelial Cells 5-10 /HPF Urine Crystals NONE /LPF Urine Bacteria MODERATE H /HPF Urine Casts NONE /LPF Urine Mucus MODERATE H /LPF Urine Culture Indicated YES White Blood Count 10.1 4.3-11.0 10^3/uL Red Blood Count 4.01 3.80-5.11 10^6/uL Hemoglobin 12.1 11.5-16.0 g/dL Hematocrit 36 35-52 % Mean Corpuscular Volume 89 80-99 fL Mean Corpuscular Hemoglobin 30 25-34 pg Mean Corpuscular Hemoglobin Concent 34 32-36 g/dL Red Cell Distribution Width 13.5 10.0-14.5 % Platelet Count 393 130-400 10^3/uL Mean Platelet Volume 9.4 9.0-12.2 fL Prothrombin Time 13.4 12.2-14.7 SEC INR Comment 1.0 0.8-1.4 Sodium Level 137 135-145 MMOL/L Potassium Level 3.9 3.6-5.0 MMOL/L Chloride Level 107 98-107 MMOL/L Carbon Dioxide Level 22 21-32 MMOL/L Anion Gap 8 5-14 MMOL/L Blood Urea Nitrogen 7 7-18 MG/DL Creatinine 0.61 0.60-1.30 MG/DL Estimat Glomerular Filtration Rate 130 BUN/Creatinine Ratio 11 Glucose Level 80 70-105 MG/DL Uric Acid 4.9 2.6-7.2 MG/DL Calcium Level 8.8 8.5-10.1 MG/DL Corrected Calcium 9.4 8.5-10.1 MG/DL Total Bilirubin 0.3 0.1-1.0 MG/DL Aspartate Amino Transf (AST/SGOT) 10 5-34 U/L Alanine Aminotransferase (ALT/SGPT) 9 0-55 U/L Alkaline Phosphatase 127 40-136 U/L Lactate Dehydrogenase 132 125-220 U/L Total Protein 6.3 L 6.4-8.2 GM/DL Albumin 3.3 3.2-4.5 GM/DL OB - Assessment/Plan/Diagnosis Assessment Admission Dx labor Gall bladder dysfunction 36 weeks gestation GBS positive Admission Status: Inpatient Order (span 2 midnights) Reason for Inpatient Admission: Labor, delivery and course Plan Problems: (1) labor Assessment & Plan: Progressing through active labor with history of precipitous deliveries in past, anticipate vaginal delivery. Qualifiers: (2) Group B streptococcal carriage complicating Assessment & Plan: Ampicillin (3) Gallbladder colic Assessment & Plan: No evidence of cholecystitis, LFTs nml, suspect this may be instigator of PTL, treat supportively, anticipate Surgery follow up post-. ARSLAN ESPINOZA MD Sep 05, 2022 17:44
[2022-09-05] MEDS ORDERED: fentaNYL 2 mcg/ml BUPIVA 0.125 100 ML ONE (17:48)
[2022-09-05] MEDS ORDERED: LACTATED RINGERS 1,000 ML IV ONE ×2 (17:48→18:45)
[2022-09-05] MEDS ORDERED: fentaNYL INJ 100 MCG/2 ML AMP ONE (18:08)
[2022-09-05] MEDS ORDERED: BUPIVACAINE 0.25% 10 ML (SENSORCAINE) VIAL ONE (18:08)
[2022-09-05] MEDS ORDERED: ONDANSETRON 4 MG/2 ML (SDV) Z0FRAN IV PRN (18:45)
[2022-09-05] MEDS ORDERED: CATHETER FLUSH 10 ML SYR IV PRN (18:45)
[2022-09-05] MEDS ORDERED: fentaNYL 2 mcg/ml BUPIVA 0.125 100 ML IV SCH (18:45)
[2022-09-05] MEDS ORDERED: NALOXONE 0.4 MG/ML 1 ML (NARCAN) VIAL IV PRN (18:45)
[2022-09-05] MEDS ORDERED: diphenhydrAMINE 50 MG/ML INJ (BENADRYL) IV PRN (18:45)
[2022-09-05] MEDS ORDERED: AMPICILLIN FOR IV USE 1,000 MG in NS (IVPB) 50 ML IV SCH (19:45)
[2022-09-05] MEDS ORDERED: OXYTOCIN PRE-MIX DRIP 500 ML IV ONE ×2 (20:10→20:57)
[2022-09-05] MEDS ORDERED: LIDOCAINE 1% INJ 10 ML VIAL ONE (20:10)
--- NOTE | 2022-09-05 20:48 | OB Labor & Delivery Record ---
Vag Delivery Note Vag Delivery Note Date of Delivery: 09/05/22 Preoperative Diagnosis: Oanh Barahona is a (21 /Para 3 / 2, Gestational Age (wks)36with 4 DAYS Postoperative Diagnosis: Same Surgeon: ARSLAN ESPINOZA Anesthesia: Epidural Delivery Type: Findings: Viable male , apgars [], weight 6#11 Lacerations: none Intact placenta with 3 vessel cord. No nuchal cord, body cord or shoulder dystocia Estimated Blood Loss: 250 ml Complications: None Condition: Stable Description of Procedure: The patient is a 21 year old female who presented in labor. She was admitted and informed consent was obtained. Her labor course was remarkable for co-existing gall bladder disease. She progressed to complete dilatation and began to push. She was then set up for delivery. The 's head was delivered atraumatically in the OA position. The shoulders and remainder of the infant's body were then delivered without difficulty. Upon delivery, the infant was vigorous and placed on maternal chest and the mouth and nares were bulb suctioned. After a delay cord was doubly clamped and cut and the remained on maternal chest. An intact placenta with 3-vessel cord delivered via Johann and there was found to be minimal bleeding.~ Vigorous fundal massage was performed and the fundus was found to be firm. IV oxytocin was given. Examination of the vagina and perineum revealed no lacerations. Following the delivery sponge, instrument and needle co unts were correct. Mom and baby were both in stable condition in the labor suite. Vitals - Labs Vital Signs - I&O Vital Signs Date Time Temp Pulse Resp B/P (MAP) Pulse Ox O2 Delivery O2 Flow Rate FiO2 09/05/22 18:54 79 18 107/58 (74) 99 Room Air 09/05/22 18:48 81 18 106/66 (79) 99 Room Air 09/05/22 18:43 92 18 106/65 (79) 98 Room Air 09/05/22 18:40 78 18 110/67 (81) 98 Room Air 09/05/22 18:37 79 18 108/65 (79) 98 Room Air 09/05/22 18:33 80 18 105/57 (73) 97 Room Air 09/05/22 18:28 92 18 111/63 (79) 100 Room Air 3/10/23 18:24 122 18 126/79 (95) 99 Room Air 09/05/22 18:20 88 18 102/71 (81) 100 Room Air 09/05/22 14:52 36.8 86 18 116/65 98 Room Air Labs Laboratory Tests 09/05/22 14:20: Urine Color YELLOW, Urine Clarity CLEAR, Urine pH 8.5, Urine Specific [place] 1.010L, Urine Protein 1+H, Urine Glucose (UA) NEGATIVE, Urine Ketones NEGATIVE, Urine Nitrite NEGATIVE, Urine Bilirubin NEGATIVE, Urine Urobilinogen 2.0, Urine Leukocyte Esterase TRACEH, Urine RBC (Auto) NEGATIVE, Urine RBC NONE, Urine WBC 10-25H, Urine Squamous Epithelial Cells 5-10, Urine Crystals NONE, Urine Bacteria MODERATEH, Urine Casts NONE, Urine Mucus MODERATEH, Urine Culture Indicated YES 09/05/22 14:56: White Blood Count 10.1, Red Blood Count 4.01, Hemoglobin 12.1, Hematocrit 36, Mean Corpuscular Volume 89, Mean Corpuscular Hemoglobin 30, Mean Corpuscular Hemoglobin Concent 34, Red Cell Distribution Width 13.5, Platelet Count 393, Mean Platelet Volume 9.4, Prothrombin Time 13.4, INR Comment 1.0, Sodium Level 137, Potassium Level 3.9, Chloride Level 107, Carbon Dioxide Level 22, Anion Gap 8, Blood Urea Nitrogen 7, Creatinine 0.61, Estimat Glomerular Filtration Rate 130, BUN/Creatinine Ratio 11, Glucose Level 80, Uric Acid 4.9, Calcium Level 8.8, Corrected Calcium 9.4, Total Bilirubin 0.3, Aspartate Amino Transf (AST/SGOT) 10, Alanine Aminotransferase (ALT/SGPT) 9, Alkaline Phosphatase 127, Lactate Dehydrogenase 132, Total Protein 6.3L, Albumin 3.3 ARSLAN ESPINOZA MD Sep 05, 2022 20:48
[2022-09-05] MEDS ORDERED: OXYTOCIN PRE-MIX DRIP 500 ML IV SCH ×2 (21:00→21:30)
[2022-09-05] MEDS ORDERED: BENZOCAINE/MENTHOL (DERMOPLAST) 56 ML CAN TP PRN (21:00)
[2022-09-05] MEDS ORDERED: FAMOTIDINE 20 MG (PEPCID) TABLET PO SCH (21:00)
[2022-09-05] MEDS ORDERED: WITCH HAZEL(TUCKS) 40 EA JAR TOP PRN (21:00)
[2022-09-05] MEDS ORDERED: CATHETER FLUSH 10 ML SYR IV SCH ×2 (22:00)
[2022-09-05] MEDS: IBUPROFEN 600 MG (MOTRIN) TAB PO SCH (23:13)
[2022-09-05] MEDS: DOCUSATE SODIUM 100 MG (COLACE) CAP PO SCH (23:14)
[2022-09-06 03:09] VITALS: BP 108/71
[2022-09-06 06:11] LABS: BASOPHILS % (AUTO) 0 % (0-10); EOSINOPHILS # (AUTO) 0.1 10^3/uL (0.0-0.3); EOSINOPHILS % (AUTO) 1 % (0-10); HEMATOCRIT 35 % (35-52); HEMOGLOBIN 11.9 g/dL (11.5-16.0); LYMPHOCYTES % (AUTO) 25 % (12-44); MEAN CORPUSCULAR HEMOGLOBIN 30 pg (25-34); MEAN CORPUSCULAR HGB CONC 34 g/dL (32-36); MEAN CORPUSCULAR VOLUME 89 fL (80-99); MEAN PLATELET VOLUME 9.4 fL (9.0-12.2); MONOCYTES # (AUTO) 0.8 10^3/uL (0.0-1.0); MONOCYTES % (AUTO) 7 % (0-12); NEUTROPHILS # (AUTO) 7.8 10^3/uL (1.8-7.8); NEUTROPHILS % (AUTO) 67 % (42-75); PLATELET COUNT 308 10^3/uL (130-400); WHITE BLOOD COUNT 11.8 10^3/uL (4.3-11.0)
[2022-09-06] MEDS: IBUPROFEN 600 MG (MOTRIN) TAB PO SCH ×3 (06:14→18:03)
[2022-09-06] MEDS: HYDROcodone/APAP 5 MG/325 MG (LORTAB) TAB PO PRN ×3 (06:39→21:09)
--- NOTE | 2022-09-06 08:02 | Anesthesia-Regional Post-Op ---
Regional Patient Condition Mental Status: Alert, Oriented x3 Circulation: Same as Pre-Op Headache: Absent Sensation: Full Recovery Motor Block: Absent Post Op Complications Complications None Follow Up Care/Instructions Patient Instructions None needed. Anesthesia/Patient Condition Patient is doing well, no complaints, stable vital signs, no apparent adverse anesthesia problems. No complications reported per nursing. [place] [facility] [place]: Yes FERN VALADEZ CRNA Sep 06, 2022 08:02
[2022-09-06 08:58] VITALS: BP 96/66
[2022-09-06] MEDS: DOCUSATE SODIUM 100 MG (COLACE) CAP PO SCH ×2 (09:10→21:09)
[2022-09-06] MEDS: PRENATAL VITAMIN 1 EA TAB PO SCH (09:10)
[2022-09-06 12:16] VITALS: BP 110/66
[2022-09-06 16:00] VITALS: BP 113/60
[2022-09-06 21:09] VITALS: BP 111/66
[2022-09-07 03:05] VITALS: BP 114/65
[2022-09-07] MEDS: IBUPROFEN 600 MG (MOTRIN) TAB PO SCH ×3 (03:05→14:36)
[2022-09-07] MEDS: HYDROcodone/APAP 5 MG/325 MG (LORTAB) TAB PO PRN ×3 (03:05→14:36)
[2022-09-07] MEDS: DOCUSATE SODIUM 100 MG (COLACE) CAP PO SCH (08:07)
[2022-09-07] MEDS: PRENATAL VITAMIN 1 EA TAB PO SCH (08:07)
[2022-09-07 08:10] VITALS: BP 123/61
--- NOTE | 2022-09-07 13:34 | Postpartum Progress Note ---
Note Note Day # 1 Subjective: Patient is without complaints. Ambulating, voiding. Tolerating a regular diet without nausea or vomiting. Normal lochia. Pain is well controlled with oral pain medications. Breast and bottle feeding. Objective: Physical Exam: General - Alert and oriented, no apparent distress Abdomen - Soft, appropriately tender to palpation, non-distended, fundus firm at umbilicus Extremities - no edema, negative Ronnie's bilaterally Assessment: 21 yo G3 now P3 post- day # 1, status post uncomplicated vaginal delivery of . Recovering well, hemodynamically stable Plan: Routine care. Encourage breast feeding. Encourage ambulation. Ferrous sulfate supplementation. Plan for discharge tomorrow and f.u with Dr Rios Delayed note for 09/06/22 due to physician injury Vitals - Labs Vital Signs - I&O Vital Signs Date Time Temp Pulse Resp B/P (MAP) Pulse Ox O2 Delivery O2 Flow Rate FiO2 09/07/22 08:10 36.6 68 18 123/61 (81) 98 Room Air 09/07/22 03:05 36.6 66 18 114/65 (81) 98 Room Air 09/06/22 21:09 36.6 65 18 111/66 (81) 98 Room Air 09/06/22 16:00 36.9 70 18 113/60 (77) 98 Room Air Labs Microbiology 09/05/22 Urine Culture - Final, Complete Gram Pos Mixed Bacterial Yanira Strep agalactiae Group B LISSETT JONES MD Sep 07, 2022 13:34
--- NOTE | 2022-09-07 13:38 | Discharge Summary ---
Diagnosis/Chief Complaint Date of Admission Sep 05, 2022 at 15:47 Date of Discharge 09/07/22 Admission Diagnosis Admission Diagnosis Third Trimester 36 week gestation Pre term labor Discharge Diagnosis delivery 36 completed weeks gestation Discharge Summary-Simple/Stand Procedures Discharge Physical Examination Allergies: Coded Allergies: No Known Drug Allergies (Unverified , 03/06/22) Vitals & I&Os Vital Sign - Last 12Hours Date Time Temp Pulse Resp B/P (MAP) Pulse Ox O2 Delivery O2 Flow Rate FiO2 09/07/22 08:10 36.6 68 18 123/61 (81) 98 Room Air General Appearance: Alert, Oriented X3, No Acute Distress Respiratory: Clear to Auscultation, Normal Air Movement Cardiovascular: Regular Rate, No Murmurs Abdominal: Normal Bowel Sounds, Soft, No Tenderness, No Masses, Other (Fundus firm and below umbilicus) Extremities: No Edema, No Tenderness/Swelling Skin: No Rashes Neuro: Normal Speech Hospital Course See final discharge diagnosis. Discharge Condition at discharge Stable Instructions to patient/family Please see electronic discharge instructions given to patient. Discharge Medications Reviewed and agree with Discharge Medication list on patient's Discharge Instruction sheet LISSETT JONES MD Sep 07, 2022 13:38
[2022-09-07] MEDS ORDERED: DOCU100C37 PO (13:39)
[2022-09-07] MEDS ORDERED: IBUP-844 PO (13:39)
--- NOTE | 2022-09-07 13:39 | Discharge Summary ---
Discharge Inst-[facility] Reconcile Patient Problems Problems Reviewed?: Yes Depart Medications New, Converted or Re-Newed RX: Transmitted to Pharmacy New Medications: Docusate Sodium (Docusate Sodium) 100 Mg Capsule 100 MG PO BID, #14 CAP Ibuprofen (Ibu) 600 Mg Tablet 600 MG PO Q6HR, #60 TAB Follow Up/Instructions Goal/Follow Up: [address] Rios Activity Activity: Activity as Tolerated Driving Instructions: You May Drive NO SMOKING: NO SMOKING Nothing Inside Vagina: No Douching, No [place], No Tampons Diet Discharge Diet: No Restrictions Symptoms to Report to : Bleeding Excessive, Fever Over 101 Degrees F, Shortness of Breath, Weight Gain Over 2 Pounds LISSETT JONES MD Sep 07, 2022 13:39
[2022-09-07 14:36] VITALS: BP 128/68
== END 2022-09-07 18:35 | disposition home or self-care (01) | DRG 807 ==
LOC: LDRP 14:33 → WSo 14:33 → LDRP 15:47 → WSo 15:47 → LDRP 23:05
PROVIDERS: ADMIT Family Medicine; ATTEND Family Medicine
PROC: 10E0XZZ Delivery of Products of Conception, External Approach (ICD-10-PCS; principal; 2022-09-05)
DX: O60.14X0 Preterm labor third trimester with preterm delivery third trimester, not applicable or unspecified (principal); Z37.0 Single live birth; Z3A.36 36 weeks gestation of pregnancy; O99.62 Diseases of the digestive system complicating childbirth; K80.20 Calculus of gallbladder without cholecystitis without obstruction; O99.824 Streptococcus B carrier state complicating childbirth; Z28.310 Unvaccinated for COVID-19
CPT/HCPCS: 36415; 80053; 81000; 83615; 84550; 85025; 85027; 85610; 86780; 86850; 86900; 86901; 87088; 99213